=== PATIENT | male | born 1975 | race Caucasian/White ===

== ENCOUNTER → 2017-01-12 | Outpatient (CLI) | payer BC | LOC: BHSO 09:56 | DX: F42.2 Mixed obsessional thoughts and acts (principal) ==

== ENCOUNTER → 2017-07-16 | Outpatient (CLI) | payer BC | LOC: BHSO 09:17 | DX: F41.1 Generalized anxiety disorder (principal) ==

== ENCOUNTER → 2017-09-28 | Outpatient (CLI) | payer BC | LOC: BHSO 08:59 | DX: F41.1 Generalized anxiety disorder (principal) | CPT/HCPCS: G0463 ==

== ENCOUNTER → 2018-01-04 | Outpatient (CLI) | payer BC | LOC: BHSO 09:13 | DX: F42.8 Other obsessive-compulsive disorder (principal) | CPT/HCPCS: G0463 ==

== ENCOUNTER → 2018-04-12 | Outpatient (CLI) | payer BC | LOC: BHSO 08:58 | DX: F42.8 Other obsessive-compulsive disorder (principal) | CPT/HCPCS: G0463 ==

== ENCOUNTER → 2018-12-24 | Outpatient (CLI) | payer BC | LOC: BHSO 08:26 | DX: F33.1 Major depressive disorder, recurrent, moderate (principal) | CPT/HCPCS: G0463 ==

== ENCOUNTER 2018-12-26 09:00 | Outpatient (RCR) | payer BC | END 2018-12-30 16:07 | disposition home or self-care (01) | LOC: WSC 09:00 | DX: S13.4XXD Sprain of ligaments of cervical spine, subsequent encounter (principal); V49.60XD Unspecified car occupant injured in collision with unspecified motor vehicles in traffic accident, subsequent encounter; Z87.891 Personal history of nicotine dependence ==

== ENCOUNTER → 2019-06-25 | Outpatient (CLI) | payer BC | LOC: BHSO 08:58 | DX: F42.8 Other obsessive-compulsive disorder (principal) | CPT/HCPCS: G0463 ==

== ENCOUNTER → 2019-08-14 | Outpatient (CLI) | payer BC | LOC: BHSO 08:56 | DX: F33.42 Major depressive disorder, recurrent, in full remission (principal) | CPT/HCPCS: G0463 ==